=== PATIENT | male | born 1955 | race Caucasian/White ===

== ENCOUNTER → 2018-06-26 12:35 | Outpatient (CLI) | payer OTHER, SELFPAY | PROVIDERS: Family Provider Family Medicine; PCP Family Medicine; Visit Provider Internal Medicine Pulmonary Disease | DX: Z87.891 Personal history of nicotine dependence (principal) | CPT/HCPCS: G0297 ==

== ENCOUNTER → 2022-06-12 | Outpatient (CLI) | payer MEDICARE, SELFPAY ==
[2022-06-12 15:35] LABS: EXAGEN MAILED SPECIMEN
[2022-06-12 17:51] LABS: Color, Urine Straw (Yellow); Glucose, Dipstick Normal (Normal); Ketone-Dipstick 5 mg/dl (Negative); Leukocyte Esterase-Dipstick Negative /ul (Negative); Nitrite-Dipstick Negative (Negative); Occult Blood-Urine Negative /ul (Negative); Protein-Dipstick Negative (Negative); Specific Gravity, Urine 1.005 (1.002-1.030); Urine Bilirubin Dipstick Negative (Negative); Urine Clarity Clear (Clear); Urine Urobilinogen Normal (Normal)
[2022-06-12 18:03] LABS: Erythrocyte Sedimentation Rate 31 mm/hr (0-20)
[2022-06-12 18:06] LABS: Absolute Lymphocyte Count 0.59 X10^3/uL (0.83-4.51); Absolute Neutrophil Count 7.8 X10^3/uL (2.0-7.7); Basophil# 0.05 X10^3/uL; Basophil% 0.5 % (0-1); Eosinophil# 0.05 X10^3/uL; Eosinophils% 0.5 % (0-5); Hematocrit 43.1 % (40-54); Hemoglobin 14.8 g/dL (13.0-16.5); Lymphocyte # 0.59 X10^3/ul (0.83-4.51); Lymphocyte % 6.2 % (19-41); Mean Corp Hgb Conc 34.3 g/dL (32-36); Mean Corpuscular Hgb 35.2 pg (27.0-32.0); Mean Corpuscular Volume 102.4 fL (80-94); Mean Platelet Vol. 10.6 fl (6.2-12.0); Monocyte# 0.92 X10^3/uL; Monocyte% 9.7 % (0-10); NRBC Flagged by Analyzer 0 % (0-5); Neutrophil # 7.82 X10^3/uL (2.7-7.7); Neutrophil % 82.1 % (47-70); POSITIVE DIFFERENTIAL YES; Platelet Count 247 K/mm3 (150-450); RBC Distribution Width CV 13.9 % (11.6-14.6); RBC Distribution Width SD 52.9 fl (35.1-43.9); Red Blood Count 4.21 M/mm3 (4.6-6.2); White Blood Count 9.5 K/mm3 (4.4-11.0)
[2022-06-12 18:18] LABS: Protein, Urine (Random) 7.7 mg/dL (<11.9); Protein:Creat Ratio 395 mg/g CRE (0-200)
[2022-06-12 18:23] LABS: ALB/GLOB Ratio 0.8 RATIO (0.9-2.4); AST(SGOT) 40 U/L (15-37); Alanine Aminotransfer ALT/SGPT 29 U/L (16-61); Albumin, Serum 3.4 g/dL (3.2-5.0); Alkaline Phosphatase 66 U/L (45-117); Anion Gap 10 (5-15); BUN 12 mg/dL (7-18); BUN/Creat Ratio 16.5 RATIO (10-20); Calcium,Total 9.2 mg/dL (8.5-10.1); Chloride 97 mmol/L (98-107); Creatinine, Serum 0.73 mg/dL (0.70-1.30); EST Glomerular Filtration Rate 115 mL/min (>60); Est Glom Filt Rate - Afr Amer 139 mL/min (>60); Globulin 4.4 g/dL (2.2-4.2); Glucose 89 mg/dL (74-106); Protein, Total 7.8 g/dL (6.4-8.2); Sodium Level 133 mmol/L (136-145)
[2022-06-12 18:30] LABS: Differential Indicated SCAN CRITERIA MET
[2022-06-12 18:37] LABS: Differential Comment SCANNED
[2022-06-13 09:27] LABS: Hepatitis B Surface Antibody Non-Reactive; Hepatitis B Surface Antigen Non-Reactive (Nonreactive); Hepatitis C Antibody Non-Reactive (Nonreactive)
== END | disposition home or self-care (01) ==
LOC: MTLAB 14:28
PROVIDERS: PCP Family Medicine; Referring Provider Internal Medicine Rheumatology; Visit Provider Internal Medicine Rheumatology
DX: R76.8 Other specified abnormal immunological findings in serum (principal); M34.9 Systemic sclerosis, unspecified; J44.9 Chronic obstructive pulmonary disease, unspecified; I10 Essential (primary) hypertension; H35.30 Unspecified macular degeneration; E89.0 Postprocedural hypothyroidism
CPT/HCPCS: 36415; 80053; 81002; 82570; 84156; 85025; 85652; 86140; 86706; 86803; 87340

== ENCOUNTER → 2022-07-15 | Outpatient (CLI) | payer MEDICARE, SELFPAY ==
[2022-07-15 19:13] LABS: CPK Total, Creatine Kinase 61 U/L (39-308); GGTP 31 U/L (15-85)
[2022-07-18 08:31] LABS: Aldolase 5.3 U/L (3.3-10.3)
== END | disposition home or self-care (01) ==
LOC: MTLAB 15:31
PROVIDERS: PCP Family Medicine; Referring Provider Internal Medicine Rheumatology; Visit Provider Internal Medicine Rheumatology
DX: R76.8 Other specified abnormal immunological findings in serum (principal); M34.9 Systemic sclerosis, unspecified; J44.9 Chronic obstructive pulmonary disease, unspecified; I10 Essential (primary) hypertension; H35.30 Unspecified macular degeneration; E89.0 Postprocedural hypothyroidism
CPT/HCPCS: 36415; 82085; 82550; 82977

== ENCOUNTER → 2022-07-22 | Outpatient (CLI) | payer MEDICARE, SELFPAY ==
--- NOTE | 2022-07-22 12:54 | ECHOD_ITS ---
Reason For Study: DYSPNEA Procedure This was a 2D Doppler, Color Flow transthoracic echocardiogram. Exam performed in department. Left Ventricle Normal LV size. Left ventricular systolic function is normal. The estimated ejection fraction is 60 %. No regional wall motion abnormalities noted. Right Ventricle Normal RV size. Normal systolic function. Atria Normal left atrium. Normal right atrium. Mitral Valve Mild diffuse mitral valve thickening. Mild (1+) eccentric mitral valve insufficiency. Tricuspid Valve Mild diffuse thickening of the tricuspid valve. Mild (1+) tricuspid valve insufficiency. Pulmonary artery systolic pressure is 63 mmHg. Moderate pulmonary hypertension. Aortic Valve Trisinus/trileaflet aortic valve. Pulmonic Valve Normal pulmonic valve. Great Vessels Normal aortic root. The pulmonary artery is normal size. Normal inferior vena cava. Pericardium/Pleural No pericardial effusion. MMode/2D Measurements & Calculations LVIDd: 3.9 cm IVSd: 0.95 cm Ao root diam: 3.7 cm LVIDs: 3.3 cm LVPWd: 1.3 cm RVDd: 3.7 cm FS: 15.8 % LAV(MOD-bp): 63.6 ml LVAd ap4: 31.2 cm2 SV(MOD-sp4): 48.8 ml LAV(MOD-bp) Indexed: 34.1 ml/m2 LVLd ap4: 8.2 cm LAV(MOD-sp2): 70.8 ml EDV(MOD-sp4): 96.4 ml LAV(MOD-sp4): 52.7 ml EDV(sp4-el): 100.7 ml LVAs ap4: 20.2 cm2 LVLs ap4: 7.0 cm ESV(MOD-sp4): 47.6 ml ESV(sp4-el): 49.3 ml EF(MOD-sp4): 50.6 % EF(sp4-el): 51.1 % SV(sp4-el): 51.4 ml LA A4 area: 20.2 cm2 LA dimension(2D): 3.1 cm RA A4 area: 18.3 cm2 Time Measurements MV dec time: 0.14 sec Doppler Measurements & Calculations MV E max la: 66.2 cm/sec MV V2 max: 86.8 cm/sec MV dec slope: 469.1 cm/sec2 MV A max la: 63.0 cm/sec MV max P.0 mmHg MV E/A: 1.1 MV V2 mean: 53.6 cm/sec MV mean P.3 mmHg MV V2 VTI: 19.8 cm Ao V2 max: 112.1 cm/sec LV V1 max: 93.9 cm/sec PA V2 max: 83.5 cm/sec Ao max P.1 mmHg LV V1 max P.5 mmHg PA V2 mean: 55.6 cm/sec Ao V2 mean: 81.4 cm/sec LV V1 mean P.9 mmHg Ao mean P.9 mmHg LV V1 mean: 64.0 cm/sec Ao V2 VTI: 26.4 cm LV V1 VTI: 20.5 cm TR max la: 381.9 cm/sec TR max P.3 mmHg ECHO/Echo Complete Interpretation Summary Normal LV size. Left ventricular systolic function is normal. The estimated ejection fraction is 60 %. Mild (1+) eccentric mitral valve insufficiency. Mild (1+) tricuspid valve insufficiency. Pulmonary artery systolic pressure is 63 mmHg. Moderate pulmonary hypertension. Ordering Physician: Haim Fernández Referring Physician: Haim Fernández Performed By: [place] RCS
== END | disposition home or self-care (01) ==
LOC: CVS 12:53
PROVIDERS: PCP Family Medicine; Referring Provider Internal Medicine Critical Care Medicine; Visit Provider Internal Medicine Critical Care Medicine
DX: R06.02 Shortness of breath (principal); M34.9 Systemic sclerosis, unspecified; J44.9 Chronic obstructive pulmonary disease, unspecified; R76.8 Other specified abnormal immunological findings in serum
CPT/HCPCS: 93306

== ENCOUNTER → 2022-07-30 | Outpatient (CLI) | payer MEDICARE, SELFPAY ==
[2022-07-30 11:36] VITALS: PULSE 81; PULSE 84; PULSE 91; PULSE 92; PULSE 93; PULSE 94; PULSE 96; O2SAT 88; O2SAT 89; O2SAT 90; O2SAT 91; O2SAT 93
--- NOTE | 2022-07-30 11:38 | CPS ---
Patient walked entire test on room air. Took a brief 5 second break during the 5th minute and stated this is more than he ever walks at one time. SpO2 did drop to 88% for the last 5-10 seconds of testing and went up to 90% as soon as we stopped. Discussed the possibility of oxygen on ambulation which is when the patient again stated that he never walks that much. Patient has a follow up with Dr. Fernández in two weeks.
--- NOTE | 2022-07-31 10:26 | PCM.PSN.6M ---
PSN 6 Minute Walk Test 6 Minute Walk Test 6 Minute Walk Test: 6 Minute Walk Test PSN:6-Minute Walk Test Start: 07/30/22 11:36 Freq: Status: Active Protocol: RESP.[id number] Document 07/30/22 11:36 MATEO (Rec: 07/30/22 11:40 MATEO [id number]) 6 Minute Walk Test Date Performed 07/30/22 Time Performed 11:15 Height 5 ft 7 in Weight: 165 lb Weight in Pounds 165.[address]: Haim Fernández Assistive device used: None Pre-test Oxygen Delivery Method Room Air Pulse Ox (%) 93 Pulse Rate (60-100 beats/min) 81 Dyspnea Citlalli Scale (0-10) 0.5 Exertion Citlalli Scale (6-20) 6 1st minute Oxygen Delivery Method Room Air Pulse Ox (%) 91 Pulse Rate (60-100 beats/min) 91 2nd minute Oxygen Delivery Method Room Air Pulse Ox (%) 90 Pulse Rate (60-100 beats/min) 92 3rd minute Oxygen Delivery Method Room Air Pulse Ox (%) 89 Pulse Rate (60-100 beats/min) 92 4th minute Oxygen Delivery Method Room Air Pulse Ox (%) 90 Pulse Rate (60-100 beats/min) 93 5th minute Oxygen Delivery Method Room Air Pulse Ox (%) 89 Pulse Rate (60-100 beats/min) 94 Number of Rests Taken 1 6th minute Oxygen Delivery Method Room Air Pulse Ox (%) 88 Pulse Rate (60-100 beats/min) 96 Dyspnea Citlalli Scale (0-10) 3 Exertion Citlalli Scale (6-20) 14 Post-test Oxygen Delivery Method Room Air Pulse Ox (%) 93 Pulse Rate (60-100 beats/min) 84 Full Laps Walked 10 Partial Lap, Number of Tiles Walked 10 Total Distance Walked (ft) 600 07/30/22 11:38 Cardiopulmonary Services by Tuyet Valle Patient walked entire test on room air. Took a brief 5 second break during the 5th minute and stated this is more than he ever walks at one time. SpO2 did drop to 88% for the last 5-10 seconds of testing and went up to 90% as soon as we stopped. Discussed the possibility of oxygen on ambulation which is when the patient again stated that he never walks that much. Patient has a follow up with Dr. Fernández in two weeks. Initialized on 07/30/22 11:38 - END OF NOTE Interpretation Interpretation: The patient ambulated 600 feet over the course of 6 minutes beginning on room air without assistive devices. Pretesting oxygen saturation was noted to be 93% on room air. With ambulation, the yg oxygen saturation was 88%. This represents a significant exertional oxygen desaturation, consistent with a pulmonary limitation to exercise tolerance. Recommendations Recommendations: There is no indication for the use of supplemental oxygen at this time. However, close interval follow-up is recommended, given the degree of oxygen desaturation noted during this study.
== END | disposition home or self-care (01) ==
LOC: PSN 11:12
PROVIDERS: PCP Family Medicine; Referring Provider Internal Medicine Critical Care Medicine; Visit Provider Internal Medicine Critical Care Medicine
DX: M34.9 Systemic sclerosis, unspecified (principal); J44.9 Chronic obstructive pulmonary disease, unspecified; F17.211 Nicotine dependence, cigarettes, in remission
CPT/HCPCS: 94618